=== PATIENT | female | born 1960 | race African-American/Black ===

== ENCOUNTER 2017-09-15 21:12 | Emergency (ER) | payer SELFPAY ==
[2017-09-15] MEDS ORDERED: Acetaminophen 500 MG TAB ONE (21:30)
[2017-09-15] MEDS ORDERED: Ondansetron ODT 4 MG TAB ONE (21:46)
[2017-09-15] MEDS ORDERED: Ibuprofen 800 MG TAB ONE (22:31)
[2017-09-15] MEDS ORDERED: Lorazepam 2 MG/ML VIAL ONE (22:48)
== END 2017-09-15 22:46 | disposition home or self-care (01) ==
LOC: ERS 21:12
DX: J11.1 Influenza due to unidentified influenza virus with other respiratory manifestations (principal); Z79.899 Other long term (current) drug therapy
CPT/HCPCS: 87804; 99283; J2060; Q0162

== ENCOUNTER 2018-08-04 09:04 | Emergency (ER) | payer SELFPAY ==
--- NOTE | 2018-08-04 09:20 | RAD ---
FExam: Chest one view HISTORY:Dyspnea. Productive cough. Comparison: 01/12/2013 FINDINGS: Cardiac silhouette:Upper normal Pulmonary vessels: Normal Costophrenic angles: Clear LUNGS: No masses or consolidation. Pneumothorax: None Osseous abnormalities: None IMPRESSION: No acute cardiopulmonary process.
[2018-08-04] MEDS ORDERED: methylPREDNISolone Sod Succ/PF 125 MG/2 ML VIAL ONE (09:28)
[2018-08-04] MEDS ORDERED: Albuterol Sulfate 2.5 mg/3 ml Neb ONE (09:35)
[2018-08-04 09:56] LABS: #Basophils 0.1 thou/uL (0.0-0.2); #Eosinphils 1.5 thou/uL (0.0-0.7); #Lymphocytes 5.7 thou/uL (1.20-3.40); #Monocytes 0.8 thou/uL (0.11-0.59); #Neutrophils 4.9 thou/uL (1.40-6.50); %Basophils 0.5 % (0.0-1.0); %Eosinophils 11.4 % (0.0-10.0); %Lymphocytes 44.1 % (21.0-51.0); %Monocytes 5.8 % (0.0-10.0); %Neutrophils 38.2 % (42.0-75.0); Hemoglobin 12.5 g/dL (12.0-16.0); Mean Corpuscular HGB CONC 34.4 g/dL (32.0-36.0); Mean Corpuscular Hemoglobin 31.6 pg (27.0-31.0); Mean Corpuscular Volume 91.7 fL (78.0-98.0); Platelet Count 273 thou/uL (130-400); RBC Distribution Width 12.2 % (11.5-14.5); Red Blood Cell (RBC) Count 3.95 mill/uL (4.20-5.40); White Blood Cell (WBC) Count 12.8 thou/uL (4.8-10.8)
[2018-08-04 10:29] LABS: ALT (SGPT) 36 U/L (8-55); AST (SGOT) 27 U/L (5-34); Albumin 4.2 g/dL (3.5-5.0); Alkaline Phosphatase 82 U/L (40-150); Anion Gap 11 mmol/L (10-20); BUN (Urea Nitrogen) 10 mg/dL (9.8-20.1); Bilirubin, Total 1.5 mg/dL (0.2-1.2); CK (CPK) 89 U/L (29-168); Calc. Creatinine Clearance 0 mL/min (70-130); Calcium 9.4 mg/dL (7.8-10.44); Carbon Dioxide 25 mmol/L (22-29); Chloride 107 mmol/L (98-107); Estimated GFR-MDRD 90; Glucose 97 mg/dL (70-105); Potassium 3.7 mmol/L (3.5-5.1); Protein, Total 8.2 g/dL (6.0-8.3); Sodium 139 mmol/L (136-145)
--- NOTE | 2018-08-04 11:12 | CT ---
FEXAM: CT pulmonary angiogram with IV contrast and 3-D MIP reconstructions PROVIDED CLINICAL HISTORY: Chest pain and shortness of breath COMPARISON: Prior CT PET examination dated January 12, 2013 FINDINGS: There is no evidence for central or segmental pulmonary embolus. There are patchy areas of groundglas s opacity within the right upper lobe. There are areas of subsegmental volume loss within the right m iddle lobe and lingula. There is a new 4 mm groundglass nodule within the posterior right lower lobe on image 99 of series 3. No pleural fluid or pneumothorax apparent. No evidence for thoracic lymph no de enlargement. The airway appears patent and of normal caliber. The visualized portions of the upper abdomen demonstrate no acute findings. The osseous structures demonstrate no concerning lytic or niels stic lesions. IMPRESSION: 1. No evidence for central or segmental pulmonary embolus. 2. Patchy areas of groundglass opacity in the right upper lobe may reflect an infectious or inflammat ory pneumonitis. An additional groundglass nodule is seen within the posterior right lower lobe which are new. CT follow-up in 6-8 weeks to document resolution is recommended. 3. Areas of subsegmental volume loss within the right middle lobe and lingula.
[2018-08-04] MEDS ORDERED: ISOVUE-370 76%-LOCM 1 ML ONE (14:54)
== END 2018-08-04 16:17 | disposition home or self-care (01) ==
LOC: ERS 09:04
DX: J18.9 Pneumonia, unspecified organism (principal); J45.909 Unspecified asthma, uncomplicated; Z87.891 Personal history of nicotine dependence; Z79.899 Other long term (current) drug therapy
CPT/HCPCS: 71045; 71275; 80053; 82550; 83880; 84484; 85025; 93005; 94640; 94644; 96374; J2930; J7611; J7620; Q9966

== ENCOUNTER 2019-05-09 12:12 | Emergency (ER) | payer BC, SELFPAY ==
--- NOTE | 2019-05-09 12:42 | RAD ---
XR Chest Pa Lat STANDARD History: Dyspnea Comparison: Radiograph August 2018 Findings: Artifact likely extrinsic to the patient projecting over the neck and right upper lobe. Kay gical clips along the undersurface left hemidiaphragm. Lungs without confluent airspace consolidation, pneumothorax, or effusion. No acute osseous abnormali ty. Impression: No acute intrathoracic abnormality or significant change.
[2019-05-09 13:00] LABS: Hemoglobin 12.4 g/dL (12.0-16.0); Mean Corpuscular HGB CONC 35.5 g/dL (32.0-36.0); Mean Corpuscular Hemoglobin 31.7 pg (27.0-31.0); Mean Corpuscular Volume 89.4 fL (78.0-98.0); Platelet Count 231 thou/uL (130-400); RBC Distribution Width 11.9 % (11.5-14.5); Red Blood Cell (RBC) Count 3.92 mill/uL (4.20-5.40); White Blood Cell (WBC) Count 15.9 thou/uL (4.8-10.8)
[2019-05-09 13:09] LABS: Band 1 % (5-11); Eosinophils 5 % (0-10); Lymphocytes 50 % (21-51); MDiff Complete? YES; Monocytes 4 % (0-10); Neutrophil 30 % (42-75); Platelet Morphology Comment Appears Adequate; RBC Morphology Normal; Reactive Lymphocytes 10 % (0-10)
[2019-05-09 13:19] LABS: ALT (SGPT) 77 U/L (8-55); AST (SGOT) 53 U/L (5-34); Albumin 4.1 g/dL (3.5-5.0); Alkaline Phosphatase 78 U/L (40-110); Anion Gap 10 mmol/L (10-20); BUN (Urea Nitrogen) 13 mg/dL (9.8-20.1); Bilirubin, Total 0.6 mg/dL (0.2-1.2); Calc. Creatinine Clearance 0 mL/min (70-130); Carbon Dioxide 29 mmol/L (22-29); Chloride 107 mmol/L (98-107); Estimated GFR-MDRD 73; Globulin 3.8 g/dL (2.4-3.5); Glucose 102 mg/dL (70-105); Potassium 3.6 mmol/L (3.5-5.1); Protein, Total 7.9 g/dL (6.0-8.3); Sodium 142 mmol/L (136-145)
[2019-05-09] MEDS ORDERED: Oxymetazoline HCl 0.05% (30 ML BOT) ONE (13:55)
[2019-05-09] MEDS ORDERED: Lidocaine 4% Topical Sol 50 ML BOT ONE (13:55)
== END 2019-05-09 15:47 | disposition home or self-care (01) ==
LOC: ERS 12:12
DX: J32.9 Chronic sinusitis, unspecified (principal); Z87.891 Personal history of nicotine dependence
CPT/HCPCS: 31505; 36415; 71046; 80053; 85025

== ENCOUNTER 2022-06-05 16:04 | Outpatient (CLI) | payer OTHER | END 2022-06-05 16:05 | disposition home or self-care (01) | LOC: BICRAD 16:04 | PROVIDERS: ATTEND Nurse Practitioner Family | DX: R10.32 Left lower quadrant pain (principal) | CPT/HCPCS: 72170 ==

== ENCOUNTER 2022-09-08 12:20 | Outpatient (CLI) | payer OTHER | END 2022-09-08 12:21 | disposition home or self-care (01) | LOC: MRI 12:20 | PROVIDERS: ATTEND Family Medicine | DX: R10.2 Pelvic and perineal pain (principal); R10.32 Left lower quadrant pain; G93.89 Other specified disorders of brain | CPT/HCPCS: 72195 ==

== ENCOUNTER 2024-05-09 13:17 | Outpatient (CLI) | payer OTHER | END 2024-05-09 13:18 | disposition home or self-care (01) | LOC: BICMAMMO 13:17 | PROVIDERS: ATTEND Family Medicine | DX: Z12.31 Encounter for screening mammogram for malignant neoplasm of breast (principal); Z80.3 Family history of malignant neoplasm of breast | CPT/HCPCS: 77063; 77067 ==